=== PATIENT | male | born 1940 | race Two or more races ===

== ENCOUNTER 2017-01-28 21:06 | Emergency (ER) | payer OTHER ==
--- NOTE | 2017-01-28 21:40 | PDOC ---
History of Present Illness - General History Source: EMS, Family Exam Limitations: Clinical Condition <Duke Garcia - Last Filed: 01/28/17 21:49> - General History Source: Unavil. due to pt. cond. Exam Limitations: Unresponsive <Duke Alvarez - Last Filed: 01/29/17 05:45> - General Chief Complaint: Cardiac Arrest Stated Complaint: CARDIAC ARREST Time Seen by Provider: 01/28/17 21:37 *Physical Exam - Physical Exam Comments: 01/28/17 22:37 GENERAL: (+) Unresponsive. HEAD: No signs of trauma. LUNGS:(+) Lungs rhonchorus bilaterally. HEART: (+) Absent heart sounds. ABDOMEN: Soft, nontender, normoactive bowel sounds. No guarding, no rebound. No masses EXTREMITIES: (+) Cyanosis appreciated. Normal range of motion, no edema. No clubbing. No cords, erythema, or tenderness <Duke Alvarez - Last Filed: 01/29/17 05:45> Procedures - Central Line Progress: 01/28/17 22:26 Left proximal tib IO placed - Intubation Intubation Method: orotracheal Blade used: Glidescope Tube Size (Fr): 7.5 Tube position @ lip (cm): 22 Tube position confirmed by: Direct visualization, CO2 detector, Breath sounds Breath Sounds after Intubation: equal Intubation Complications: no complications Post Intubation Xray: No (Pt in cardiac arrest) <Duke Garcia - Last Filed: 01/28/17 21:49> Medical Decision Making - Critical Care Time Total Critical Care Time (minutes): 30 Critical Care Statement: The care of this patient involved high complexity decision making to prevent further life threatening deterioration of the patient 's condition and/or to evaluate & treat vital organ system(s) failure or risk of failure. - Medical Decision Making 01/28/17 21:38 A portion of this note was documented by scribe services under my direction. I have reviewed the details of the note, within reason, and agree with the documentation with the following case summary and management plan written by me. Patient treated in the ED. Patient arrives by ambulance to the emergency department. Nursing notes are reviewed and incorporated into the medical decision-making. Vital signs reviewed. 76-year-old male with past medical history of pulmonary hypertension, interstitial pulmonary fibrosis, cardiomyopathy, on chronic home oxygen presents by EMS in cardiac arrest. The patient was feeling generally unwell today according to the . He had went to the bathroom and suddenly collapsed. EMS was activated and noted the patient was hypotensive and unresponsive. Patient suddenly went into cardiac arrest and was in CPR for approximately 10 minutes when the patient arrived to the ER. They noted asystole on his rhythm. We had a medially seen the patient and initiated high- quality CPR. ACLS protocol was followed. Patient was also in addition defibrillated though he was in asystole. The patient demonstrated on bedside echocardiogram with cardiac standstill. Repeat rhythm checks demonstrated asystole. Pt had a left prox tib IO placed and pt was intubated. Ultimately, at 9:30 pm, the patient was pronounced . Patient's here at the bedside and aware. Case was discussed with the medical photographer Cody and the case was rejected. . Case was discussed with Dr. Mariano Kellogg who is aware. Patient likely had cardiac arrest in the setting of cardiac myopathy, interstitial pulmonar fibrosis. <Duke Garcia - Last Filed: 01/28/17 21:49> *DC/Admit/Observation/Transfer <Duke Garcia - Last Filed: 01/28/17 21:49> - Attestations Scribe Attestion: 01/28/17 22:38 Documentation prepared by Duke Alvarez, acting as medical records secretary for Duke Garcia MD. <Duke Alvarez - Last Filed: 01/29/17 05:45> Diagnosis at time of Disposition: Cardiac arrest - Discharge Dispostion Disposition: Condition at time of disposition: - Referrals Referrals: Mariano Kellogg MD [Primary Care Provider] -
[2017-01-29 01:04] VITALS: TEMP 95
== END 2017-01-28 23:00 | disposition expired ==
LOC: JER 21:06
PROC: 5A12012 Performance of Cardiac Output, Single, Manual (ICD-10-PCS; principal; 2017-01-28)
PROC: 0BH17EZ Insertion of Endotracheal Airway into Trachea, Via Natural or Artificial Opening (ICD-10-PCS; 2017-01-28)
PROC: 06HY33Z Insertion of Infusion Device into Lower Vein, Percutaneous Approach (ICD-10-PCS; 2017-01-28)
DX: I46.9 Cardiac arrest, cause unspecified (principal); J84.10 Pulmonary fibrosis, unspecified; I27.2 Other secondary pulmonary hypertension; Z99.81 Dependence on supplemental oxygen
CPT/HCPCS: 31500; 36558; 92950; 99285-25